=== PATIENT | female | born 1940 | race Caucasian/White ===

== ENCOUNTER 2016-07-16 20:51 | Emergency (ER) | payer MEDICARE, BC ==
[~2016-07-16] VITALS: Ht 170.2 cm; Wt 72.0 kg
[2016-07-16 21:21] VITALS: BP 156/76; PULSE 66; RESP 18; TEMP 97.9; O2SAT 99
[2016-07-16] MEDS ORDERED: AMLO2.5T PO (21:29)
--- NOTE | 2016-07-16 21:40 | PD ---
HPI Chief Complaint: Fall Time Seen by Provider: 21:35 Travel History International Travel<30 days: No Contact w/Intl Traveler<30days: No Traveled to known affect area: No History of Present Illness HPI 76-year-old female presents the emergency department status post fall at home. Patient states she was trying to place a large ceramic bird up on top of a counter while standing on a stepladder, when she lost her balance falling backwards. Allergic ceramic bird sculpture hit her in her right anterior eyebrow, and she bumped the back of her head patient is feels it LOC for an unknown period of time. She felt somewhat rattled after she woke up. She has a mild headache, and feels somewhat off balance. She denies nausea, vomiting, or visual changes. Patient was home alone when this occurred. Her drove her here for evaluation. Patient does not take any aspirin or anticoagulants. She is ambulatory. She does complain of some mild neck pain although his is moving her head freely. She denies any other significant injury. She has no known drug allergies. [facility] Past Medical History Hypertension: Yes Influenza Vaccination: No ?: Not Past Surgical History Appendectomy: Yes Cholecystectomy: Yes Social History Alcohol Use: No Tobacco Use: No Substance Use: No Allergies-Medications (Allergen,Severity, Reaction): Coded Allergies: No Known Allergies (Unverified , 07/16/16) Reported Meds & Prescriptions Reported Meds & Active Scripts Active Reported Amlodipine (Amlodipine Besylate) 2.5 Mg Tab 2.5 Mg PO DAILY Review of Systems Except as stated in HPI: all other systems reviewed are Neg General / Constitutional: No: Fever Eyes: No: Visual changes HENT: No: Headaches Cardiovascular: No: Chest Pain or Discomfort Respiratory: No: Shortness of Breath Gastrointestinal: No: Abdominal Pain Genitourinary: No: Dysuria Musculoskeletal: No: Pain Skin: No Rash Neurologic: No: Weakness Psychiatric: No: Depression Endocrine: No: Polydipsia Hematologic/Lymphatic: No: Easy Bruising Physical Exam Narrative GENERAL: Patient appears mildly anxious but in no acute distress. SKIN: Warm and dry. Normal color. Normal turgor. Patient is a small superficial laceration to the right medial eyebrow which is already well approximated without bleeding. HEAD: Patient has mild swelling and tenderness over the right anterior middle eyebrow, without obvious bony deformity. EYES: Patient has bilateral cataract repair. No scleral icterus. No injection or drainage. Ocular motions are equal bilaterally without increased pain. ENT: No nasal bleeding or discharge. Mucous membranes pink and moist. No dental injury. Airway is patent. Pharynx is normal. NECK: Trachea midline. Mild bony tenderness at the base of the cervical spine, however range of motion is full. CARDIOVASCULAR: Regular rate and rhythm. RESPIRATORY: No accessory muscle use. Clear to auscultation. Breath sounds equal bilaterally. MUSCULOSKELETAL: Extremities without clubbing, cyanosis, or edema. No obvious deformities. NEUROLOGICAL: Awake and alert. No obvious cranial nerve deficits. Motor grossly within normal limits. Five out of 5 muscle strength in the arms and legs. Normal speech. PSYCHIATRIC: Appropriate mood and affect; insight and judgment normal. Data Data Last Documented VS Vital Signs Date Time Temp Pulse Resp B/P Pulse Ox O2 Delivery O2 Flow Rate FiO2 07/16/16 21:21 97.9 66 18 156/[address] Brain W/O Iv Contrast(Rout) (07/16/16 21:33) Ct Cerv Spine W/O Contrast (07/16/16 21:33) MDM Medical Decision Making Medical Screen Exam Complete: Yes Emergency Medical Condition: Yes Differential Diagnosis Fall from ladder. Head injury. Neck pain. Positive LOC. Narrative Course Patient is medically stable at time of exam. CT of the head and neck are ordered. No need for laceration or wound repair is noted. CT was negative for any significant finding. Patient is to take Tylenol and rest for the next several days. Head injury signs and symptoms are discussed. Patient to follow with her primary care physician next week or return to emergency Department with any worsening symptoms as necessary. Diagnosis Primary Impression: Fall on and from ladder causing accidental injury Qualified Code: W11.XXXA - Fall on and from ladder causing accidental injury, initial encounter Additional Impression: Head injury, closed, with LOC of unknown duration Referrals: Primary Care Physician Patient Instructions: Concussion (ED), Fall Prevention (ED), General Instructions, Head Injury (ED), Post Concussion Syndrome (ED) Additional Instructions: CT was negative for any significant finding. Patient is to take Tylenol and rest for the next several days. Head injury signs and symptoms are discussed. Patient to follow with her primary care physician next week or return to emergency Department with any worsening symptoms as necessary. Disposition: 01 DISCHARGE HOME Condition: Stable Bebo Rosenberg Jul 16, 2016 21:40
--- NOTE | 2016-07-16 23:06 | RADHPO ---
EXAM DATE/TIME: 07/16/2016 22:36 [facility] COMPARISON: No previous studies available for comparison. INDICATIONS : Fall. Posterior head and neck trauma. RADIATION DOSE: 59.35 CTDIvol (mGy) MEDICAL HISTORY : Hypertension. SURGICAL HISTORY : None. ENCOUNTER: Initial ACUITY: 1 day PAIN SCALE: 8/10 LOCATION: occipital TECHNIQUE: Multiple contiguous axial images were obtained of the head. Using automated exposure control and adj ustment of the mA and/or kV according to patient size, radiation dose was kept as low as reasonably a chievable to obtain optimal diagnostic quality images. FINDINGS: CEREBRUM: The ventricles are normal for age. No evidence of midline shift, mass lesion, hemorrhage or acute in farction. No extra-axial fluid collections are seen. POSTERIOR FOSSA: The cerebellum and brainstem are intact. The 4th ventricle is midline. The cerebellopontine angle i s unremarkable. EXTRACRANIAL: The visualized portion of the orbits is intact. SKULL: The calvaria is intact. No evidence of skull fracture. There is a calcified 1.5 cm scalp mass in the left parietal region. CONCLUSION: No acute intracranial findings Adam Avila MD on July 16, 2016 at 23:02 Board Certified Radiologist. This report was verified electronically.
--- NOTE | 2016-07-16 23:09 | RADHPO ---
EXAM DATE/TIME: 07/16/2016 22:36 [facility] COMPARISON: No previous studies available for comparison. INDICATIONS : Fall. Posterior head and neck trauma. RADIATION DOSE: 24.97 CTDIvol (mGy) MEDICAL HISTORY : Hypertension. SURGICAL HISTORY : None. ENCOUNTER: Initial ACUITY: 1 day PAIN SCALE: 7/10 LOCATION: neck TECHNIQUE: Volumetric scanning of the cervical spine was performed. Multiplanar reconstructions in the sagittal, coronal and oblique axial planes were performed. Using automated exposure control and adjustment o f the mA and/or kV according to patient size, radiation dose was kept as low as reasonably achievable to obtain optimal diagnostic quality images. FINDINGS: Cervical spine alignment is satisfactory. There is no evidence of fracture. No bony canal or foramina l compromise is noted. There are degenerative changes with disc space narrowing and endplate osteophy kong most significantly at C4-5 and C5-6. There is no evidence of paraspinal hematoma. There are some pleuroparenchymal changes in the visualized lung apices. CONCLUSION: No acute bony injury in the cervical spine Adam Avila MD on July 16, 2016 at 23:05 Board Certified Radiologist. This report was verified electronically.
== END 2016-07-16 23:26 | disposition home or self-care (01) ==
LOC: PHEFT 20:51
DX: S09.90XA Unspecified injury of head, initial encounter (principal); S01.111A Laceration without foreign body of right eyelid and periocular area, initial encounter; I10 Essential (primary) hypertension; W17.89XA Other fall from one level to another, initial encounter; Y93.89 Activity, other specified; Y92.009 Unspecified place in unspecified non-institutional (private) residence as the place of occurrence of the external cause
CPT/HCPCS: 70450; 72125

== ENCOUNTER → 2016-10-15 | Outpatient (CLI) | payer MEDICARE, BC ==
[~2016-10-15] MED LIST: AMLO2.5T PO
[2016-10-15 13:23] LABS: AUTOMATED NEUTROPHIL # 3.5 TH/MM3 (1.8-7.7); BASOPHIL % 0.6 % (0.0-2.0); EOSINOPHIL # 0.2 TH/MM3 (0-0.4); EOSINOPHIL % 3.5 % (0.0-4.0); HEMATOCRIT 41.8 % (35.0-46.0); HEMO FLAGS DIFF FINAL; LYMPH % 25.7 % (9.0-44.0); LYMPHOCYTE # 1.6 TH/MM3 (1.0-4.8); MEAN CELL VOLUME 93.3 FL (80.0-100.0); MEAN CORPUSCULAR HEMOGLOBIN 30.1 PG (27.0-34.0); MEAN CORPUSCULAR HGB CONC 32.2 % (32.0-36.0); MONO % 13.3 % (0.0-8.0); NEUT % 56.9 % (16.0-70.0); PLATELET COUNT 160 TH/MM3 (150-450); RED BLOOD COUNT 4.49 MIL/MM3 (4.00-5.30); RED CELL DISTRIBUTION WIDTH 13.5 % (11.6-17.2); WHITE BLOOD COUNT 6.1 TH/MM3 (4.0-11.0)
[2016-10-15 13:54] LABS: ANION GAP 6 MEQ/L (5-15); AST (GOT) 24 U/L (15-37); BICARBONATE 28.8 MEQ/L (21.0-32.0); BLOOD UREA NITROGEN 23 MG/DL (7-18); CHLORIDE 107 MEQ/L (98-107); GLUCOSE,FASTING 81 MG/DL (74-99); POTASSIUM 4.6 MEQ/L (3.5-5.1); SODIUM (NA) 142 MEQ/L (136-145)
[2016-10-15 14:09] LABS: ALKALINE PHOSPHATASE 114 U/L (45-117); ALT (GPT) 24 U/L (10-53); FREE T4 1.04 NG/DL (0.76-1.46); GLOMERULAR FILTRATION RATE 65 ML/MIN (>89); HDL CHOLESTEROL 68.5 MG/DL (40.0-60.0); LDL CHOLESTEROL 155 MG/DL (0-99); TOTAL BILIRUBIN ADULT 0.6 MG/DL (0.2-1.0)
[2016-10-15 16:26] LABS: HEMOGLOBIN A1a 1.2 %; HEMOGLOBIN A1b 1.5 %; HEMOGLOBIN Ao 84.9 %
== END ==
LOC: PLAB 11:26
PROVIDERS: ATTEND Family Medicine
DX: I10 Essential (primary) hypertension (principal); E78.2 Mixed hyperlipidemia; E55.9 Vitamin D deficiency, unspecified; Z79.899 Other long term (current) drug therapy
CPT/HCPCS: 36415; 80053; 80061; 82306; 83036; 84439; 84443; 84480; 85025

== ENCOUNTER → 2017-01-13 | Outpatient (CLI) | payer MEDICARE, BC ==
[2017-01-13 14:00] LABS: AUTOMATED NEUTROPHIL # 3.7 TH/MM3 (1.8-7.7); BASOPHIL % 0.7 % (0.0-2.0); EOSINOPHIL # 0.3 TH/MM3 (0-0.4); EOSINOPHIL % 4.1 % (0.0-4.0); HEMATOCRIT 40.7 % (35.0-46.0); HEMO FLAGS DIFF FINAL; LYMPH % 26.7 % (9.0-44.0); LYMPHOCYTE # 1.8 TH/MM3 (1.0-4.8); MEAN CORPUSCULAR HEMOGLOBIN 31.3 PG (27.0-34.0); MEAN CORPUSCULAR HGB CONC 33.3 % (32.0-36.0); MONO % 11.4 % (0.0-8.0); NEUT % 57.1 % (16.0-70.0); PLATELET COUNT 196 TH/MM3 (150-450); RED BLOOD COUNT 4.32 MIL/MM3 (4.00-5.30); RED CELL DISTRIBUTION WIDTH 13.4 % (11.6-17.2); WHITE BLOOD COUNT 6.6 TH/MM3 (4.0-11.0)
[2017-01-13 14:10] LABS: ANION GAP 8 MEQ/L (5-15); AST (GOT) 22 U/L (15-37); BICARBONATE 26.1 MEQ/L (21.0-32.0); BLOOD UREA NITROGEN 19 MG/DL (7-18); CHLORIDE 106 MEQ/L (98-107); GLOMERULAR FILTRATION RATE 67 ML/MIN (>89); GLUCOSE,FASTING 96 MG/DL (74-99); POTASSIUM 4.3 MEQ/L (3.5-5.1); SODIUM (NA) 140 MEQ/L (136-145)
[2017-01-13 14:21] LABS: ALKALINE PHOSPHATASE 127 U/L (45-117); ALT (GPT) 28 U/L (10-53); HDL CHOLESTEROL 67.4 MG/DL (40.0-60.0); LDL CHOLESTEROL 122 MG/DL (0-99); THYROXINE (T4) 9.6 MCG/DL (4.8-13.9); TOTAL BILIRUBIN ADULT 0.5 MG/DL (0.2-1.0)
[2017-01-13 17:51] LABS: HEMOGLOBIN A1a 1.2 %; HEMOGLOBIN A1b 1.5 %; HEMOGLOBIN Ao 84.9 %; HEMOGLOBIN LA1C 2.1 %; HEMOGLOBIN P3 5.4 %
== END ==
LOC: PLAB 08:45
PROVIDERS: ATTEND Family Medicine
DX: I10 Essential (primary) hypertension (principal); E10.8 Type 1 diabetes mellitus with unspecified complications; E78.2 Mixed hyperlipidemia; E03.8 Other specified hypothyroidism; E55.9 Vitamin D deficiency, unspecified; Z79.899 Other long term (current) drug therapy
CPT/HCPCS: 36415; 80053; 80061; 82306; 83036; 84436; 84443; 84480; 85025

== ENCOUNTER 2017-02-26 12:01 | Emergency (ER) | payer MEDICARE, BC ==
[~2017-02-26] VITALS: Ht 162.6 cm; Wt 63.5 kg
[2017-02-26 12:04] VITALS: BP 170/76; PULSE 78; RESP 16; TEMP 97.7; O2SAT 98
[2017-02-26] MEDS ORDERED: MELO7.5T27 PO (13:00)
[2017-02-26] MEDS ORDERED: PRED1 PO (13:00)
[2017-02-26] MEDS ORDERED: KETOROLAC TROMETHAMINE 60 MG/2 ML (IM) VIAL IM ONE (13:30)
--- NOTE | 2017-02-26 13:35 | PD ---
HPI Chief Complaint: Pain: Acute or Chronic Time Seen by Provider: 13:35 Travel History International Travel<30 days: Yes Contact w/Intl Traveler<30days: Yes Name of Country Traveled to: PT RECENTLY RETURNED FROM [place] TO [facility]. Traveled to known affect area: No History of Present Illness HPI 77-year-old female with history of low back pain ongoing since September 2016. She has had a CT scan and MRI done by her primary doctor revealed mild spinal stenosis. No other abnormalities. She denies fever, incontinence, saddle anesthesia, paresthesia or weakness in the extremities. She denies chest pain, shortness breath, abdominal pain. Constant, nonradiating localized to the low back. She is currently on meloxicam. She reports she was given Tylenol 3 for previous flares which helped the pain. [facility] Past Medical History Narrative Medical Significant for hypertension and chronic low back pain. Cardiovascular Problems: Yes (htn on meds) Hypertension: Yes Medical other: Yes (BILATERAL BREAST BIOPSY, INFECTION IN RIGHT HIP/ THIGH) Tetanus Vaccination: > 5 Years Influenza Vaccination: No ?: Not Past Surgical History Appendectomy: Yes Cholecystectomy: Yes Social History Alcohol Use: No Tobacco Use: No Substance Use: No Allergies-Medications (Allergen,Severity, Reaction): Coded Allergies: barium sulfate (Verified Allergy, Unknown, 02/26/17) PT POOR HISTORIAN - STATES ALLERGY. No Known Allergies (Unverified Adverse Reaction, Unknown, 02/26/17) Reported Meds & Prescriptions Reported Meds & Active Scripts Active Tylenol-Codeine #3 (Acetaminophen-Codeine) 300-30 mg Tab 1-2 Tab PO Q6H PRN Reported Prednisone 1 Mg Tab Unknown Dose PO DAILY Meloxicam 7.5 Mg Tab 7.5 Mg PO DAILY Amlodipine (Amlodipine Besylate) 2.5 Mg Tab 2.5 Mg PO DAILY Review of Systems Except as stated in HPI: all other systems reviewed are Neg General / Constitutional: No: Fever HENT: No: Headaches Cardiovascular: No: Chest Pain or Discomfort Respiratory: No: Shortness of Breath Gastrointestinal: No: Abdominal Pain Physical Exam Narrative GENERAL: Well-nourished, well-developed patient. SKIN: Focused skin assessment warm/dry. HEAD: Normocephalic. EYES: No scleral icterus. No injection or drainage. NECK: Supple, trachea midline. No JVD or lymphadenopathy. CARDIOVASCULAR: Regular rate and rhythm without murmurs, gallops, or rubs. RESPIRATORY: Breath sounds equal bilaterally. No accessory muscle use. GASTROINTESTINAL: Abdomen soft, non-tender, nondistended. MUSCULOSKELETAL: No cyanosis, or edema. Normal strength and sensation of the lower extremity's. BACK:without obvious deformity. No CVA tenderness. Denies tenderness to the lumbar region. No point tenderness of the spine. Data Data Last Documented VS Vital Signs Date Time Temp Pulse Resp B/P (MAP) Pulse Ox O2 Delivery O2 Flow Rate FiO2 02/26/17 14:00 138/57 (84) 02/26/17 12:04 97.7 78 16 98 Orders Orders Ketorolac Inj (Toradol Inj) (02/26/17 13:30) Ed Discharge Order (02/26/17 13:37) [facility] Medical Decision Making Medical Screen Exam Complete: Yes Emergency Medical Condition: Yes Differential Diagnosis Acute on chronic back pain. DJD. Lumbar strain, sciatica Narrative Course 77-year-old female with history of low back pain ongoing since September. Patient is followed by her primary doctor for this. She is currently on meloxicam. She denies recent injury or trauma. She has had a CAT scan and MRI done recently which do not reveal any acute abnormalities. Her physical exam is reassuring. Her vital signs are stable. She is mildly hypertensive likely due to the pain. Diagnosis Primary Impression: Low back pain Qualified Codes: M54.5 - Low back pain; G89.29 - Other chronic pain Referrals: Primary Care Physician Additional Instructions: Take the medication as needed for pain. Continue to take the meloxicam as prescribed. Follow-up the primary doctor. Scripts Acetaminophen-Codeine (Tylenol-Codeine #3) 300-30 mg Tab 1-2 TAB PO Q6H Y for PAIN, #14 TAB 0 Refills Prov: Lorna Muir MD 02/26/17 Disposition: 01 DISCHARGE HOME Condition: Stable Khushbu Zelaya Feb 26, 2017 13:35
[2017-02-26] MEDS ORDERED: TYLETAB34 PO (13:36)
[2017-02-26 14:00] VITALS: BP 138/57
== END 2017-02-26 14:01 | disposition home or self-care (01) ==
LOC: PHEFT 12:01
DX: M54.5 Low back pain (principal); G89.29 Other chronic pain; I10 Essential (primary) hypertension
CPT/HCPCS: 96372; 99284; J1885

== ENCOUNTER 2017-03-02 15:06 | Emergency (ER) | payer MEDICARE, BC ==
[~2017-03-02] VITALS: Ht 170.2 cm; Wt 67.0 kg
[~2017-03-02 15:06] MED LIST changes: +MELO7.5T27 PO; +PRED1 PO; +TYLETAB34 PO
[2017-03-02 15:10] VITALS: BP 149/65; PULSE 62; RESP 20; TEMP 97.4; O2SAT 100
[2017-03-02] MEDS ORDERED: AMLO5TAB2 PO (15:25)
[2017-03-02] MEDS ORDERED: AMOX500T PO (15:25)
[2017-03-02] MEDS ORDERED: MELO7.5T27 PO (15:25)
[2017-03-02 15:51] LABS: AUTOMATED NEUTROPHIL # 5.7 TH/MM3 (1.8-7.7); BASOPHIL % 0.4 % (0.0-2.0); EOSINOPHIL # 0.4 TH/MM3 (0-0.4); EOSINOPHIL % 3.8 % (0.0-4.0); HEMATOCRIT 37.7 % (35.0-46.0); HEMO FLAGS DIFF FINAL; LYMPH % 29.8 % (9.0-44.0); MEAN CELL VOLUME 91.5 FL (80.0-100.0); MEAN CORPUSCULAR HEMOGLOBIN 30.4 PG (27.0-34.0); MEAN CORPUSCULAR HGB CONC 33.2 % (32.0-36.0); MONO % 10.4 % (0.0-8.0); NEUT % 55.6 % (16.0-70.0); PLATELET COUNT 249 TH/MM3 (150-450); RED BLOOD COUNT 4.12 MIL/MM3 (4.00-5.30); RED CELL DISTRIBUTION WIDTH 13.1 % (11.6-17.2); WHITE BLOOD COUNT 10.2 TH/MM3 (4.0-11.0)
[2017-03-02 16:05] LABS: CHLORIDE 101 MEQ/L (98-107); POTASSIUM 3.7 MEQ/L (3.5-5.1); SODIUM (NA) 134 MEQ/L (136-145)
[2017-03-02 16:08] LABS: ANION GAP 9 MEQ/L (5-15); BICARBONATE 24.5 MEQ/L (21.0-32.0); BLOOD UREA NITROGEN 25 MG/DL (7-18)
[2017-03-02 16:11] LABS: ALT (GPT) 20 U/L (10-53); AST (GOT) 18 U/L (15-37)
[2017-03-02 16:12] LABS: GLOMERULAR FILTRATION RATE 75 ML/MIN (>89)
[2017-03-02 16:13] LABS: TOTAL BILIRUBIN ADULT 0.4 MG/DL (0.2-1.0)
[2017-03-02 16:14] LABS: ALKALINE PHOSPHATASE 113 U/L (45-117)
[2017-03-02] MEDS ORDERED: SODIUM CHLOR 0.9% 1000 ML INJ 1,000 ML IV ONE (16:15)
[2017-03-02] MEDS ORDERED: MECLIZINE HCL 25 MG TAB PO ONE (16:15)
[2017-03-02] MEDS ORDERED: METOCLOPRAMIDE HCL 10 MG/2 ML VIAL IV PUSH ONE (16:15)
[2017-03-02] MEDS ORDERED: LORazepam 2 MG/ML VIAL IV PUSH ONE (16:15)
[2017-03-02] MEDS ORDERED: SODIUM CHLORIDE 0.9% FLUSH 10 ML FLUSH IVF PRN (16:15)
[2017-03-02 16:16] VITALS: RESP 16; O2SAT 98
--- NOTE | 2017-03-02 16:16 | PD ---
HPI Chief Complaint: Dizziness Time Seen by Provider: 16:04 Travel History International Travel<30 days: Yes Contact w/Intl Traveler<30days: Yes Name of Country Traveled to: [place] Traveled to known affect area: Yes History of Present Illness HPI The patient is a 77-year-old female with history of vertigo, hypertension, chronic back pain, presents to the emergency room for evaluation of dizziness. Patient reports that prior to coming to the emergency room, she went out to lunch, reports that when she arrived at lunch, she immediately began to feel dizzy. Patient reports that she tried drinking hot water with lemon which did not help with her symptoms. Patient reports that she began to feel nauseous and did throw up. Patient reports that she went home and did not feel any better, and decided to come to the emergency room for evaluation. Patient reports that she does have history of vertigo, reports that symptoms are different from when she had vertigo in the past and that she has nausea with this. Patient reports that when she closes her eyes, symptoms do improve. Patient denies any vision changes at this time - reports only dizziness when she opens her eyes Patient also reports that she has chronic low back pain due to bulging disc. Patient reports that she did see her chiropractor yesterday, reports that the chiropractor did not perform any manipulations or help her with pain. She was seen in the emergency room last week for this and was discharged home with Tylenol # 3 which provides mild symptomatic relief. Patient with no chest pain or shortness breath at this time, no other complaints. PFSH Past Medical History Cardiovascular Problems: Yes (htn on meds) Diminished Hearing: No Hypertension: Yes Tetanus Vaccination: Unknown ?: Not Past Surgical History Appendectomy: Yes Cholecystectomy: Yes Social History Alcohol Use: No Tobacco Use: No Substance Use: No Allergies-Medications (Allergen,Severity, Reaction): Coded Allergies: barium sulfate (Verified Allergy, Unknown, 03/02/17) PT POOR HISTORIAN - STATES ALLERGY. Reported Meds & Prescriptions Reported Meds & Active Scripts Active Meclizine (Meclizine HCl) 25 Mg Tab 25 Mg PO TID PRN Tylenol-Codeine #3 (Acetaminophen-Codeine) 300-30 mg Tab 1-2 Tab PO Q6H PRN Reported Meloxicam 7.5 Mg Tab 7.5 Mg PO BID Amlodipine (Amlodipine Besylate) 5 Mg Tab 5 Mg PO DAILY Amoxicillin 500 Mg Tab 500 Mg PO QID Review of Systems General / Constitutional: No: Fever Eyes: No: Visual changes HENT: No: Headaches Cardiovascular: No: Chest Pain or Discomfort Respiratory: No: Shortness of Breath Gastrointestinal: No: Abdominal Pain Genitourinary: No: Dysuria Musculoskeletal: No: Pain Skin: No Rash Neurologic: Positive: Dizziness, No: Weakness, Headache Psychiatric: No: Depression Endocrine: No: Polydipsia Hematologic/Lymphatic: No: Easy Bruising Physical Exam Narrative GENERAL: Moderate distress SKIN: Focused skin assessment warm/dry. HEAD: Atraumatic. Normocephalic. EYES: Pupils equal and round. No scleral icterus. No injection or drainage. ENT: No nasal bleeding or discharge. Mucous membranes pink and moist. NECK: Trachea midline. No JVD. CARDIOVASCULAR: Regular rate and rhythm. No murmur appreciated. RESPIRATORY: No accessory muscle use. Clear to auscultation. Breath sounds equal bilaterally. GASTROINTESTINAL: Abdomen soft, non-tender, nondistended. Hepatic and splenic margins not palpable. MUSCULOSKELETAL: No obvious deformities. No clubbing. No cyanosis. No edema. NEUROLOGICAL: Awake and alert. No obvious cranial nerve deficits. Motor grossly within normal limits. Normal speech. CN 2-12 grossly intact with no neurological deficits PSYCHIATRIC: Appropriate mood and affect; insight and judgment normal. Data Data Last Documented VS Vital Signs Date Time Temp Pulse Resp B/P (MAP) Pulse Ox O2 Delivery O2 Flow Rate FiO2 03/02/17 17:58 66 16 150/70 (96) 98 Room Air 03/02/17 15:10 97.4 Orders Orders Complete Blood Count With Diff (03/02/17 15:40) Comprehensive Metabolic Panel (03/02/17 15:40) Creatine Kinase (Cpk) (03/02/17 15:44) Ckmb (Isoenzyme) Profile (03/02/17 15:44) Troponin I (03/02/17 15:44) Electrocardiogram (03/02/17 15:44) Ct Brain W/O Iv Contrast(Rout) (03/02/17 16:13) Ecg Monitoring (03/02/17 16:13) Iv Access Insert/Monitor (03/02/17 16:13) Oximetry (03/02/17 16:13) Sodium Chloride 0.9% Flush (Ns Flush) (03/02/17 16:15) Sodium Chlor 0.9% 1000 Ml Inj (Ns 1000 M (03/02/17 16:15) Lorazepam Inj (Ativan Inj) (03/02/17 16:15) Metoclopramide Inj (Reglan Inj) (03/02/17 16:15) Meclizine (Antivert) (03/02/17 16:15) Ed Discharge Order (03/02/17 18:16) Labs Laboratory Tests Test 03/02/17 15:40 White Blood Count 10.2 TH/MM3 Red Blood Count 4.12 MIL/MM3 Hemoglobin 12.5 GM/DL Hematocrit 37.7 % Mean Corpuscular Volume 91.5 FL Mean Corpuscular Hemoglobin 30.4 PG Mean Corpuscular Hemoglobin Concent 33.2 % Red Cell Distribution Width 13.1 % Platelet Count 249 TH/MM3 Mean Platelet Volume 8.2 FL Neutrophils (%) (Auto) 55.6 % Lymphocytes (%) (Auto) 29.8 % Monocytes (%) (Auto) 10.4 % Eosinophils (%) (Auto) 3.8 % Basophils (%) (Auto) 0.4 % Neutrophils # (Auto) 5.7 TH/MM3 Lymphocytes # (Auto) 3.0 TH/MM3 Monocytes # (Auto) 1.1 TH/MM3 Eosinophils # (Auto) 0.4 TH/MM3 Basophils # (Auto) 0.0 TH/MM3 CBC Comment DIFF FINAL Differential Comment Blood Urea Nitrogen 25 MG/DL Creatinine 0.75 MG/DL Random Glucose 91 MG/DL Total Protein 6.3 GM/DL Albumin 3.1 GM/DL Calcium Level 8.7 MG/DL Alkaline Phosphatase 113 U/L Aspartate Amino Transf (AST/SGOT) 18 U/L Alanine Aminotransferase (ALT/SGPT) 20 U/L Total Bilirubin 0.4 MG/DL Sodium Level 134 MEQ/L Potassium Level 3.7 MEQ/L Chloride Level 101 MEQ/L Carbon Dioxide Level 24.5 MEQ/L Anion Gap 9 MEQ/L Estimat Glomerular Filtration Rate 75 ML/MIN Total Creatine Kinase 47 U/L Troponin I LESS THAN 0.02 NG/ML MDM Medical Decision Making Medical Screen Exam Complete: Yes Emergency Medical Condition: Yes Interpretation(s) EKG at 1559: NSR at 61bpm, qt/qtc: 427/429, no acute st or t wave changes Vital Signs Date Time Temp Pulse Resp B/P (MAP) Pulse Ox O2 Delivery O2 Flow Rate FiO2 03/02/17 16:16 16 98 Room Air 03/02/17 15:18 16 100 Room Air 03/02/17 15:10 97.4 62 20 149/65 (93) 100 Differential Diagnosis Vertigo, CVA, medication reaction, electrolyte abnormality Narrative Course 77-year-old female who presents to emergency room template of acute onset dizziness which began prior to arrival to the emergency room. Patient does have history of vertigo in the past, reports that symptoms do feel different. Patient reports that today, symptoms are exacerbated by movements and with opening her eyes, symptoms do improve by closing her eyes and laying still. During the course of the patients emergency department visit, the patients history, examination, and differential diagnosis were reviewed with the patient. The patient was placed on a cardiac exercise physiologist with oximetry and frequent blood pressure monitoring. The patient had 20-gauge IV access obtained and blood work sent for analysis. The patient was initially provided IV fluids, Antivert as well as IV Ativan and Reglan The patients laboratory studies were reviewed and remarkable for: CBC & BMP Diagram 03/02/17 15:40 Total Protein 6.3 L, Albumin 3.1 L, Calcium Level 8.7, Alkaline Phosphatase 113 , Aspartate Amino Transf (AST/SGOT) 18, Alanine Aminotransferase (ALT/SGPT) 20, Total Bilirubin 0.4 Radiology studies were reviewed and remarkable for: Last Impressions Head CT 03/02/17 1613 Signed Impressions: Service Date/Time: Thursday, March 02, 2017 16:25 - CONCLUSION: Stable brain appearance with no acute findings Adam Avila MD Patient reevaluated, patient reports that she is feeling much better at this time. Patient reports near resolution of symptoms. Patient reevaluated, patient with complete resolution of symptoms at this time. I reviewed all labs and all studies with patient in detail, patient with most likely vertigo given her presentation. Signs and symptoms of when to return to the emergency room was reviewed with patient in detail. Patient will follow-up with her primary care doctor and will return to the emergency room as needed. Diagnosis Primary Impression: Vertiginous syndrome Patient Instructions: General Instructions Additional Instructions: Please provide patient with a copy of their lab work and studies at discharge* * Please follow up with your primary care doctor in 2-3 days Return to the ER if symptoms worsen or progress Return to the ER as needed Med/Other Pt SpecificInfo: Prescription(s) given Scripts Meclizine (Meclizine) 25 Mg Tab 25 MG PO TID Y for VERTIGO, #20 TAB 0 Refills Prov: Carie Esquivel DO 03/02/17 Disposition: 01 DISCHARGE HOME Condition: Stable Carie Esquivel DO Mar 02, 2017 16:16
[2017-03-02 16:18] LABS: CREATINE KINASE 47 U/L (26-192)
[2017-03-02 16:24] VITALS: BP 138/64; PULSE 60; RESP 16; O2SAT 98
--- NOTE | 2017-03-02 16:44 | RADRPT ---
EXAM DATE/TIME: 03/02/2017 16:25 [facility] COMPARISON: CT BRAIN W/O CONTRAST, July 16, 2016, 22:36. INDICATIONS : Dizziness. RADIATION DOSE: 60.79 CTDIvol (mGy) MEDICAL HISTORY : Hypertension. SURGICAL HISTORY : None. ENCOUNTER: Initial ACUITY: 1 day PAIN SCALE: 0/10 LOCATION: cranial TECHNIQUE: Multiple contiguous axial images were obtained of the head. Using automated exposure control and adj ustment of the mA and/or kV according to patient size, radiation dose was kept as low as reasonably a chievable to obtain optimal diagnostic quality images. DICOM format image data is available electro nically for review and comparison. FINDINGS: CEREBRUM: The ventricles are normal for age. No evidence of midline shift, mass lesion, hemorrhage or acute in farction. No extra-axial fluid collections are seen. POSTERIOR FOSSA: The cerebellum and brainstem are intact. The 4th ventricle is midline. The cerebellopontine angle i s unremarkable. EXTRACRANIAL: The visualized portion of the orbits is intact. SKULL: The calvaria is intact. No evidence of skull fracture. Stable small calcified left parietal scalp ma ss CONCLUSION: Stable brain appearance with no acute findings Adam Avila MD on March 02, 2017 at 16:37 Board Certified Radiologist. This report was verified electronically.
[2017-03-02 17:58] VITALS: BP 150/70; PULSE 66; RESP 16; O2SAT 98
[2017-03-02] MEDS ORDERED: MECL-62 PO (18:15)
--- NOTE | 2017-03-03 16:07 | EKG ---
Date Performed: 03/02/2017 Time Performed: 15:59:50 PTAGE: 77 years EKG: Sinus rhythm POSSIBLE RIGHT VENTRICULAR CONDUCTION DELAY BORDERLINE ECG Since PREVIOUS TRACING , no significant change noted PREVIOUS TRACIN09/15/2000 11.27 DOCTOR: Corine Hightower Interpretating Date/Time 03/03/2017 16:06:13
== END 2017-03-02 18:35 | disposition home or self-care (01) ==
LOC: PHED 15:06
DX: H81.90 Unspecified disorder of vestibular function, unspecified ear (principal); I10 Essential (primary) hypertension; Z79.899 Other long term (current) drug therapy
CPT/HCPCS: 70450; 80053; 82550; 84484; 85025; 93005; 96361; 96374; 96375; 99285; J2060; J2765; J7030